=== PATIENT | female | born 1965 | race Caucasian/White ===

== ENCOUNTER 2018-10-11 09:17 | Day surgery (SDC) | payer OTHER ==
[~2018-10-11] VITALS: Ht 162.6 cm; Wt 78.0 kg
[2018-10-11] MEDS ORDERED: SSRI (10:28)
[2018-10-11 10:30] VITALS: BP 120/87; PULSE 80; RESP 18; Ht 162.6 cm; Wt 78.0 kg
--- NOTE | 2018-10-11 10:31 | PREAC ---
Date/Time of Note Date/Time of Note DATE: 10/11/18 TIME: 10:29 Anesthesia Eval and Record Evaluation Time Pre-Procedure Interview DATE: 10/11/18 TIME: 10:29 Age 52 Sex female NPO: 2 hrs (liquid ) Preoperative diagnosis screening Planned procedure colonoscopy Past Medical History Past Medical History: Includes Psych: Depression, Anxiety Surgery & Anesthesia Issues No known issue Meds Anticoagulation: No Beta Russell within 24 hr: No Reason Beta Russell not given: Pt. not on B-Russell Reported Medications [Ssri] No Conflict Check 10/11/18 Meds reviewed: Yes Allergies Coded Allergies: No Known Allergy (Unverified , 10/11/18) Allergies Reviewed: Yes Labs/Studies Labs Reviewed: Reviewed by anesthesiologist test: N/A Pre-procedure Exam Airway: Adequate mouth opening, Adequate thyromental dist Mallampati: Mallampati III Teeth: Normal Lung: Normal Heart: Normal ASA Physical Status ASA physical status: 2 Emergency: None Pre-operative Attestations Prior to commencing anesthesia and surgery, the patient was re-evaluated, there was verification of: *The patient's identity *The results of appropriate recent lab work and preoperative vital signs *The above evaluation not changing prior to induction *Anesthetic plan, risk benefits, alternative and complications discussed with patient/family; questions answered; patient/family understands, accepts and wishes to proceed. BEATRIZ MILLER DO Oct 11, 2018 10:31
[2018-10-11] MEDS ORDERED: MIDAZOLAM 1 MG/ML 2 ML INJ ONE (10:41)
[2018-10-11] MEDS ORDERED: FENTAnyl 50 MCG/ML VIAL ONE ×2 (10:41)
--- NOTE | 2018-10-11 11:12 | PAC ---
Date/Time of Note Date/Time of Note DATE: 10/11/18 TIME: 11:11 Post-Anesthesia Notes Post-Anesthesia Note Last documented vital signs 1105 113/62 75 18 98 100% Activity: WNL Respiratory function: WNL Cardiovascular function: WNL Mental status: Baseline Pain reasonably controlled: Yes Hydration appropriate: Yes Nausea/Vomiting absent: Yes BEATRIZ MILLER DO Oct 11, 2018 11:12
[2018-10-11 11:30] VITALS: BP 131/80; PULSE 66; RESP 15
== END 2018-10-11 11:09 | disposition home or self-care (01) ==
LOC: GIL 09:17
PROVIDERS: ATTEND Internal Medicine Gastroenterology
DX: Z12.11 Encounter for screening for malignant neoplasm of colon (principal); K64.8 Other hemorrhoids
CPT/HCPCS: 45378; 84703; J2250; J3010